=== PATIENT | female | born 1980 | race Caucasian/White ===

== ENCOUNTER 2017-06-23 13:35 | Emergency (ER) | payer OTHER ==
[2017-06-23 14:09] VITALS: BP 133/71
--- NOTE | 2017-06-23 15:04 | UC ---
Michele Villa Jennifer, scribed for Kevon Romero MD on 06/23/17 at 1436 . Dizzy HPI HPI Summary: The patient is a 37 year old female who presents with dizziness that began today at 08:30. She reports she was getting out of her car when she began blinking rapidly. She went to lay down but felt dizziness. The patient then went to a walk-in clinic and the physician reported that her eyes were flickering and she had possible vertigo, so she came to . The patient additionally complains that both of her arms, her body, and her mouth feel heavy, as well as burning chest pain and numbness in her right fingers that radiated up her arm two weeks ago. She had difficulty with speech saying tangerine because her mouth felt so heavy while in the clinic. The patient denies headache, recent illness, runny nose, ear pain. She also adds that her son had an infection two weeks ago. - History Of Current Complaint Chief Complaint: UCDizziness Stated Complaint: DIZZINESS Time Seen by Provider: 06/23/17 13:45 Hx Obtained From: Patient Onset/Duration: Sudden Onset, Lasting Hours - 6 hours, Still Present Timing: Constant Severity Initially: Mild Severity Currently: None Pain Intensity: 0 Pain Scale Used: 0-10 Numeric Character: Dizzy - Feeling "heavy" Aggravating Factor(s): Position Change Alleviating Factor(s): Nothing Associated Signs And Symptoms: Positive: Chest Pain - burning chest pain two weeks ago - Allergies/Home Medications Allergies/Adverse Reactions: Allergies Allergy/AdvReac Type Severity Reaction Status Date / Time No Known Allergies Allergy Verified 06/23/17 14:49 Home Medications: Home Medications buPROPion TAB* [Wellbutrin TAB*] 75 mg PO DAILY 06/23/17 [History Confirmed 09/05] PMH/Surg Hx/FS Hx/Imm Hx Previously Healthy: Yes - NEG: HTN, DM - Surgical History Surgical History: Yes Surgery Procedure, Year, and Place: 2006 [place]Y [place]. [place] [facility] 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 10/2016 Breast surgery - Family History Known Family History: Positive: Diabetes - Grandmother - Social History Alcohol Use: Occasionally Alcohol Amount: 1-2 DRINKS EVERY FEW MONTHS Substance Use Type: None Smoking Status (MU): Never Smoked Tobacco Have You Smoked in the Last Year: No Review of Systems ENT: Negative - Runny nose, ear pain Cardiovascular: Chest Pain - Burning chest pain two weeks ago Neurological: Negative - Headache, Numbness - Right fingers radiating up arm two weeks ago, Other - Mouth, body, arms feel "heavy" All Other Systems Reviewed And Are Negative: Yes Physical Exam - Summary Physical Exam Summary: General: well-appearing, no pain distress Skin: warm, color reflects adequate perfusion, dry Head: normal Eyes: EOMI, VÍCTOR ENT: normal Neck: supple, nontender Respiratory: CTA, breath sounds present Cardiovascular: RRR Abdomen: soft, nontender Bowel: present Musculoskeletal: normal, strength/ROM intact Neurological: horizontal nystagmus to the left and the right, no vertical nystagmus, speech is mildly slow, no expressive aphasia. Pt complains of generalized bilateral weakness but no focal weakness found on exam. sensory/ motor intact, A&O x3 Psychological: affect/mood appropriate Triage Information Reviewed: Yes Vital Signs: Initial Vital Signs Temp 99.1 F 06/23/17 14:04 Pulse 111 06/23/17 14:04 Resp 20 06/23/17 14:04 BP 133/71 06/23/17 14:04 Pulse Ox 100 06/23/17 14:04 Vital Signs Reviewed: Yes - Additional Comments NIH: 0 GCS: 15 Diagnostics - EKG Cardiac Rate: NL - 13:54 Cardiac Rhythm: Sinus: Normal - 89 BPM Ectopy: None ST Segment: Non-Specific - Borderline T abnormalities in inferior leads Dizzy Course/Dx - Course Course Of Treatment: UNABLE TO FULLY RULE OUT CVA HERE IN CLINIC. I RECOMMENDED EVALUATION IN THE ED. WE DISCUSSED TRANSPORT BY AMBULANCE. PATIENT WISHES TO DRIVE. SHE DROVE HERE TO CLINIC AND IS ABLE TO WALK. - Differential Dx/Diagnosis Provider Diagnoses: ACUTE ONSET DIZZINESS WITH SLURRED SPEECH AND GENERALIZED WEAKNESS Discharge - Discharge Plan Condition: Stable Disposition: HOME Patient Education Materials: Vertigo (ED), Dizziness (ED) Referrals: Lesvia Youssef MD [Primary Care Provider] - Additional Instructions: GO DIRECTLY TO THE EMERGENCY DEPARTMENT FOR FURTHER EVALUATION OF YOUR DIZZINESS. The documentation as recorded by the Michele lowe Jennifer accurately reflects the service I personally performed and the decisions made by me, Kevon Romero MD.
== END 2017-06-23 14:14 | disposition home or self-care (01) ==
LOC: UCEAST 13:35
DX: R42 Dizziness and giddiness (principal); R47.81 Slurred speech; R53.1 Weakness
CPT/HCPCS: 93005; 99212; G0463

== ENCOUNTER 2017-06-23 14:44 | Emergency (ER) | payer OTHER ==
[2017-06-23] MEDS ORDERED: NS 0.9% 1000 ML* 1,000 ML IV ONE (15:28)
[2017-06-23] MEDS ORDERED: Meclizine TAB* 12.5 MG PO ONE (15:28)
[2017-06-23] MEDS ORDERED: Meclizine TAB* 12.5 MG ONE (15:31)
--- NOTE | 2017-06-23 16:07 | RAD ---
Indication: Dizziness. Single frontal view of the chest performed at 1552 hours was reviewed. No prior study is available for comparison. No mediastinal shift is noted. Heart is of normal size and configuration. Lung morris appear clear. IMPRESSION: NO ACTIVE CARDIOPULMONARY DISEASE IS NOTED.
[2017-06-23 16:11] LABS: ABS Basophils 0 10^3/ul (0-0.2); ABS Eosinophils 0.1 10^3/ul (0-0.6); ABS Monocytes 0.8 10^3/ul (0-0.8); ABS Neutrophils 6.8 10^3/ul (1.5-7.7); ABS Nucleated RBC 0 10^3/ul; Eosinophil % 0.6 % (0-6); Hematocrit 38 % (35-47); Hemoglobin 12.9 g/dl (12.0-16.0); Lymphocyte % 27.8 % (25-47); Mean Corpuscular HGB Conc 34 g/dl (31-36); Mean Corpuscular Hemoglobin 32 pg (27-31); Mean Corpuscular Volume 94 fL (80-97); Mean Platelet Volume 10 um3 (7.4-10.4); Nucleated Red Blood Cells % 0.1; Platelet Count 181 10^3/ul (150-450); Red Blood Count 4.04 10^6/ul (4.0-5.4); Red Cell Distribution Width 14 % (10.5-15); White Blood Count 10.7 10^3/ul (3.5-10.8)
--- NOTE | 2017-06-23 16:20 | RAD ---
HISTORY: Dizziness COMPARISONS: None TECHNIQUE: Multiple contiguous axial CT scans were obtained of the head without intravenous contrast. FINDINGS: HEMORRHAGE/INFARCT: There is no hemorrhage or acute infarct. MASSES/SHIFT: There is no mass or shift. EXTRA-AXIAL SPACES: There are no extra-axial fluid collections. SULCI AND VENTRICLES: The sulci and ventricles are normal in size and position for the patient's stated age. CEREBRUM: There are no focal parenchymal abnormalities. BRAINSTEM: There are no focal parenchymal abnormalities. CEREBELLUM: There are no focal parenchymal abnormalities. VESSELS: The vessels are grossly normal. PARANASAL SINUSES: The paranasal sinuses are clear. ORBITS: The orbits are unremarkable. BONES AND SOFT TISSUE: No bone or soft tissue abnormalities are noted. OTHER: None IMPRESSION: NO ACUTE INTRACRANIAL PATHOLOGY.
[2017-06-23 16:37] LABS: EGFR Non-African American 66.3 (>60)
[2017-06-23 18:10] VITALS: BP 107/63
--- NOTE | 2017-06-24 16:05 | ED ---
Shakeel Villa Angela, scribed for Anthony Hernandez MD on 06/23/17 at 1546 . Dizziness - HPI Summary HPI Summary: This pt is a 37 y/o female presenting to [facility] c/o dizziness since this morning. Pt reports she went to class this morning at [facility] and noticed the floor was moving. She then went to the clinic and was told she might be having vertigo. Pt tried exercises but notes it aggravated her dizziness. She went to [facility] and states as she was getting there she felt "very heavy" and her "mouth was very heavy." Pt additionally notes some dry mouth. Denies chest pain, palpitations, LE swelling. - History Of Current Complaint Chief Complaint: EDDizziness Stated Complaint: DIZZINESS Time Seen by Provider: 06/23/17 15:28 Hx Obtained From: Patient Onset/Duration: Still Present Timing: Hours Severity Currently: Moderate Character: Room Spinning, Dizzy Aggravating Factor(s): Other - exercises Alleviating Factor(s): Nothing Associated Signs And Symptoms: Positive: Other: - head feeling heavy, mouth is heavy, dry mouth. Negative: Nausea, Vomiting, Chest Pain, Palpitations, Fever - Allergies/Home Medications Allergies/Adverse Reactions: Allergies Allergy/AdvReac Type Severity Reaction Status Date / Time No Known Allergies Allergy Verified 06/23/17 14:49 PMH/Surg Hx/FS Hx/Imm Hx Endocrine/Hematology History: Denies: Hx Diabetes, Hx Thyroid Disease Cardiovascular History: Denies: Hx Hypertension Respiratory History: Denies: Hx Asthma, Hx Chronic Obstructive Pulmonary Disease (COPD) GI History: Denies: Hx Ulcer Neurological History: Reports: Hx Migraine - Hx OF THINKS R/T STRESS, NO MEDS - Surgical History Surgery Procedure, Year, and Place: 2006 [place]OMY [place]. 2011 [facility] [place]. 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 10/2016 Breast surgery Hx Anesthesia Reactions: No - 2011 [place] WITH EPIDURAL, HAD SEVERE "SHAKING" Infectious Disease History: No Infectious Disease History: Denies: Hx Hepatitis, Hx Human Immunodeficiency Virus (HIV), Traveled Outside the [place] in Last 30 Days - Family History Known Family History: Positive: Diabetes - grandmother Negative: Cardiac Disease Family History: Migraine - Social History Alcohol Use: Occasionally Alcohol Amount: 1-2 DRINKS EVERY FEW MONTHS Substance Use Type: Reports: None Smoking Status (MU): Never Smoked Tobacco Have You Smoked in the Last Year: No Review of Systems Negative: Fever, Chills ENT: Other - dry mouth Negative: Palpitations, Chest Pain Negative: Vomiting, Nausea Negative: Edema Neurological: Other - POS: dizziness, reports feeling heavy, "mouth is very heavy" All Other Systems Reviewed And Are Negative: Yes Physical Exam - Summary Physical Exam Summary: VITAL SIGNS: Reviewed. GENERAL: Patient is a well-developed and nourished female who is lying comfortable in the stretcher. Patient is not in any acute respiratory distress. HEAD AND FACE: No signs of trauma. No ecchymosis, hematomas or skull depressions. No sinus tenderness. EYES: PERRLA, EOMI x 2, No injected conjunctiva, no nystagmus. No photophobia. EARS: Hearing grossly intact. Ear canals and tympanic membranes are within normal limits. MOUTH: Oropharynx within normal limits. NECK: Supple, trachea is midline, no adenopathy, no JVD, no carotid bruit, no c- spine tenderness, neck with full ROM. No meningeal signs, no Kernig's or brudzinskis signs. CHEST: Symmetric, no tenderness at palpation LUNGS: Clear to auscultation bilaterally. No wheezing or crackles. CVS: Regular rate and rhythm, S1 and S2 present, no murmurs or gallops appreciated. ABDOMEN: Soft, non-tender. No signs of distention. No rebound no guarding, and no masses palpated. Bowel sounds are normal. EXTREMITIES: FROM in all major joints, no edema, no cyanosis or clubbing. NEURO: Alert and oriented x 3. No acute neurological deficits. Speech is normal and follows commands. SKIN: Dry and warm GCS: 15 Triage Information Reviewed: Yes Vital Signs On Initial Exam: Initial Vitals Temp Pulse Resp BP Pulse Ox 98.4 F 94 16 128/80 100 06/23/17 14:50 06/23/17 14:50 06/23/17 14:50 06/23/17 14:50 06/23/17 14:50 Vital Signs Reviewed: Yes - Victor Coma Scale Best Eye Response: 4 - Spontaneous Best Motor Response: 6 - Obeys Commands Best Verbal Response: 5 - Oriented Coma Scale Total: 15 Diagnostics - Vital Signs Vital Signs Temp Pulse Resp BP Pulse Ox 06/23/17 14:50 98.4 F 94 16 128/80 100 - Laboratory Result Diagrams: 06/23/17 15:50 06/23/17 15:50 Lab Statement: Any lab studies that have been ordered have been reviewed, and results considered in the medical decision making process. - Radiology Chest XR Xray Interpretation: No Acute Changes - IMPRESSION: No active cardiopulmonary disease is noted. Dr. Hernandez has reviewed this radiology report. Radiology Interpretation Completed By: Radiologist - CT Brain CT CT Interpretation: No Acute Changes - IMPRESSION: No acute intracranial pathology. Dr. Hernandez has reviewed this radiology report. CT Interpretation Completed By: Radiologist - EKG 15:37 Cardiac Rate: NL EKG Rhythm: Sinus Rhythm - at 79 bpm EKG Interpretation: No ST elevation. Normal axis. Re-Evaluation - Re-Evaluation First Eval Re-Evaluation Time: 17:42 Comment: I reviewd the XR, CT, and lab results with the pt. Dizzy Course/Dx - Course Assessment/Plan: This pt is a 37 y/o female presenting to [facility] c/o dizziness since this morning. Pt reports she went to class this morning at [facility] and noticed the floor was moving. She then went to the clinic and was told she might be having vertigo. Pt tried exercises but notes it aggravated her dizziness. [facility] states as she was getting there she felt "very heavy" and her "mouth was very heavy." Pt additionally notes some dry mouth. Denies chest pain, palpitations, LE swelling. Test results without any significant abnormalities. Chest XR: No active cardiopulmonary disease is noted. CT brain: No acute intracranial pathology. In the ED course, the pt was given IV fluids, Zofran for nausea, Antivert for dizziness. After these medications her symptoms improved and she is no longer dizzy. Therefore she will be discharged home with follow up from PCP. Pt is hemodynamically stable, alert and oriented x3. - Diagnoses Provider Diagnoses: Dizziness Discharge - Discharge Plan Condition: Stable Disposition: HOME Prescriptions: Meclizine TAB* [Antivert 12.5 TAB*] 25 mg PO TID PRN #30 tab PRN Reason: Dizziness Patient Education Materials: Dizziness (ED) Referrals: Ruben Collins MD [Primary Care Provider] - 3 Days Additional Instructions: Please follow up with your primary care provider. RETURN TO THE ED FOR ANY WORSENING SYMPTOMS. The documentation as recorded by the Shakeel lowe Angela accurately reflects the service I personally performed and the decisions made by me, Anthony Hernandez MD.
== END 2017-06-23 18:10 | disposition home or self-care (01) ==
LOC: ED 14:44
DX: R42 Dizziness and giddiness (principal)
CPT/HCPCS: 36415; 70450; 71045; 80053; 80320; 82550; 83605; 83735; 83880; 84443; 84484; 85025; 86140; 93005; 96360; 96361; 99282; A9270-GY; G0480